=== PATIENT | female | born 2000 | race Caucasian/White ===

== ENCOUNTER 2018-07-13 04:55 | Emergency (ER) | payer SELFPAY ==
[~2018-07-13] VITALS: Ht 167.6 cm; Wt 59.0 kg
[2018-07-13] MEDS ORDERED: SODIUM CHLORIDE 0.9% 1,000 ML IV ONE (05:39)
[2018-07-13 06:34] LABS: BASOPHILS % 0.5 % (0.0-2.0); EOSINOPHILS % 0.5 % (0.0-5.0); HEMATOCRIT. 39.3 % (36.0-48.0); HEMOGLOBIN. 13.3 g/dL (12.0-16.0); LYMPHOCYTES % 33.3 % (20.0-50.0); MEAN CORPUSCULAR HEMOGLOBIN 30.3 pg (28.0-32.0); MEAN CORPUSCULAR VOLUME 89.8 fL (81.0-99.0); MEAN PLATELET VOLUME 8.4 fl (7.4-10.4); NEUTROPHILS % 61.7 % (40.0-76.0); PLATELET 308 x1000/uL (130-400); RED BLOOD CELL COUNT 4.38 mill/uL (4.2-5.4); RED CELL DISTRIBUTION WIDTH 12.8 % (11.6-14.6)
[2018-07-13 06:36] LABS: CHLORIDE 113 mEq/L (98-107)
[2018-07-13 06:40] LABS: ETHANOL BLOOD 183 mg/dL
[2018-07-13 07:09] LABS: CLARITY URINE CLEAR (CLEAR); COLOR URINE YELLOW (YELLOW); KETONES URINE NEGATIVE (NEGATIVE); LEUKOCYTE ESTERASE URINE NEGATIVE (NEGATIVE); NITRITE URINE NEGATIVE (NEGATIVE); OCCULT BLOOD URINE NEGATIVE (NEGATIVE); PH URINE 6.5 (4.5-8.0); PROTEIN URINE NEGATIVE (NEGATIVE); SPECIFIC GRAVITY URINE 1.002 (1.005-1.030); UROBILINOGEN URINE 0.2 E.U./dL (0.2-1.0)
[2018-07-13 07:20] LABS: *AMPHETAMINES SCREEN URINE NEGATIVE (NEGATIVE); *BARBITURATES SCREEN URINE NEGATIVE (NEGATIVE); *BENZODIAZEPINES SCREEN URINE NEGATIVE (NEGATIVE); *COCAINE SCREEN URINE NEGATIVE (NEGATIVE); METHADONE URINE SCREEN NEGATIVE (NEGATIVE)
[2018-07-13 07:21] LABS: CANNABINOID URINE SCREEN NEGATIVE (NEGATIVE); OPIATES URINE SCREEN NEGATIVE (NEGATIVE); PHENCYCLIDINE URINE SCREEN NEGATIVE (NEGATIVE)
[2018-07-13 10:30] VITALS: BP 138/55
== END 2018-07-13 10:34 | disposition home or self-care (01) ==
LOC: ER 05:11
DX: F10.129 Alcohol abuse with intoxication, unspecified (principal); Y90.6 Blood alcohol level of 120-199 mg/100 ml; F41.9 Anxiety disorder, unspecified
CPT/HCPCS: 36415; 80053; 80305; 81003; 81025; 82962; 85025; 87186; 93005; 96360; 99284; J7030

== ENCOUNTER 2018-12-20 14:13 | Observation (INO) | payer MEDICAID ==
[~2018-12-20] VITALS: Ht 154.9 cm; Wt 59.9 kg
[2018-12-20] MEDS ORDERED: DEXT 5%/LACTATED RINGERS 1,000 ML IV SCH (15:30)
[2018-12-20 15:51] LABS: BASOPHILS % 0.4 % (0.0-2.0); EOSINOPHILS % 0.7 % (0.0-5.0); HEMATOCRIT. 32.3 % (36.0-48.0); LYMPHOCYTES % 15.4 % (20.0-50.0); MEAN CORPUSCULAR HEMOGLOBIN 31.4 pg (28.0-32.0); MEAN CORPUSCULAR VOLUME 92.4 fL (81.0-99.0); MEAN PLATELET VOLUME 8.5 fl (7.4-10.4); MONOCYTES % 6.9 % (2.0-8.0); NEUTROPHILS % 76.6 % (40.0-76.0); PLATELET 208 x1000/uL (130-400); RED CELL DISTRIBUTION WIDTH 13.4 % (11.6-14.6)
[2018-12-20 16:00] LABS: CLARITY URINE CLEAR (CLEAR); COLOR URINE YELLOW (YELLOW); KETONES URINE NEGATIVE (NEGATIVE); LEUKOCYTE ESTERASE URINE NEGATIVE (NEGATIVE); NITRITE URINE NEGATIVE (NEGATIVE); OCCULT BLOOD URINE NEGATIVE (NEGATIVE); PH URINE 7.5 (4.5-8.0); PROTEIN URINE NEGATIVE (NEGATIVE); SPECIFIC GRAVITY URINE 1.007 (1.005-1.030); UROBILINOGEN URINE 0.2 E.U./dL (0.2-1.0)
[2018-12-20] MEDS ORDERED: prenatal (17:01)
[2018-12-20] MEDS ORDERED: FERROUS SULFATE (17:01)
== END 2018-12-20 18:45 | disposition home or self-care (01) ==
LOC: 8 EST LDRP 14:13
PROVIDERS: ADMIT Obstetrics & Gynecology; ATTEND Obstetrics & Gynecology
DX: O26.892 Other specified pregnancy related conditions, second trimester (principal); R10.9 Unspecified abdominal pain; M54.9 Dorsalgia, unspecified; Z3A.23 23 weeks gestation of pregnancy
CPT/HCPCS: 36415; 76805; 81003; 85025; 99281; G0378; 96360; 96361; J7121

== ENCOUNTER 2019-12-18 00:07 | Emergency (ER) | payer MEDICAID ==
[~2019-12-18] VITALS: Ht 154.9 cm; Wt 58.0 kg
[~2019-12-18 00:07] MED LIST: FERROUS SULFATE; prenatal
[2019-12-18 00:12] VITALS: BP 132/79
[2019-12-18] MEDS ORDERED: DIPHENHYDRAMINE 50MG/ML VIAL IV ONE (00:45)
[2019-12-18] MEDS ORDERED: METHYLPREDNISOLONE SOD SUCC 40 MG/ML VIAL IV ONE (00:45)
[2019-12-18] MEDS ORDERED: LORATADINE 10MG TABLET PO SCH (00:45)
== END 2019-12-18 02:02 | disposition home or self-care (01) ==
LOC: ER 00:07
DX: L50.9 Urticaria, unspecified (principal)
CPT/HCPCS: 81025; 96374; 99283; J2920